=== PATIENT | female | born 1940 | race Caucasian/White ===

== ENCOUNTER 2020-01-26 12:27 | Outpatient (CLI) | payer MEDICARE ==
--- NOTE | 2020-01-26 13:42 | MRI ---
MRI of thelumbar spine: 01/26/2020 COMPARISON:None available HISTORY:Lumbar radiculopathy TECHNIQUE: Multiplanar multisequence MR imaging of thelumbar spine without contrast Findings:The sagittal STIR imaging demonstrates nonspecific fluid signal intensity within the L1-2 di sc and to a lesser degree, the L2-3 disc. No adjacent vertebral body edema is noted at L1-2. Mild endplate edematous degenerative change noted at L2-3. Fluid within the L1-2 disc space is likely dege nerative in nature given lack of paravertebral soft tissue abnormality and lack of edema within the vertebral bodies. There is an anterior wedge compression fracture of the L1 vertebral body with approximately 40% loss of vertebral body height anteriorly. This is consistent with an old fracture. Retrolisthesis is noted at L1-2 measuring 5 mm and at L2-3 measuring 5 mm. Anterolisthesis at L4-5 me asures 4 mm. On the basis of 5 lumbar type vertebral bodies, the conus medullaris terminates at the T12-L1 level. T12-L1: Disc space narrowing with disc desiccation and mild disc bulge. Bilateral facet hypertrophy. No significant central canal or neural foraminal stenosis. L1-2: There is disc space narrowing with degenerative endplate change and posterior osteophyte/disc b ulge. No central canal stenosis. Bilateral facet hypertrophy with mild/moderate bilateral neural foraminal stenosis, left greater than right. L2-3: Bilateral facet hypertrophy. Disc space narrowing and disc desiccation with disc osteophyte com plex causing mild central canal stenosis. Vacuum disc formation. Moderate right and mild left neural foraminal stenosis. Vacuum disc formation noted. L3-4: Prominent bilateral facet hypertrophy and hypertrophy of ligamentum flavum. Disc space narrowin g with disc desiccation and disc bulge. There is vacuum disc formation present. There is a superimposed foraminal disc protrusion on the left. There is prominent left lateral recess stenosis. Vacuum disc formation is present. Mild bilateral neural foraminal stenosis. L4-5: Bilateral facet of [place] hypertrophy of the ligamentum flavum noted. There is disc space and w ith disc desiccation and disc bulge. Mild central canal stenosis. Vacuum disc formation noted. Mild left neural foraminal stenosis. No significant right neural foraminal stenosis. L5-S1: Bilateral facet hypertrophy. Anterior osteophyte formation noted on the right. There is disc d esiccation. Mild right neural foraminal stenosis. No central canal stenosis or left-sided neural foraminal stenosis. T2 hyperintense lesions within the right kidney are noted, evidence of cysts. IMPRESSION:Multilevel degenerative change within the lumbar spine as detailed above.
== END 2020-01-26 12:28 | disposition home or self-care (01) ==
LOC: TBSIIMAG 12:27
PROVIDERS: ATTEND Neurological Surgery
DX: M47.26 Other spondylosis with radiculopathy, lumbar region (principal); M54.5 Low back pain
CPT/HCPCS: 72148

== ENCOUNTER 2020-11-15 14:00 | Outpatient (CLI) | payer MEDICARE | END 2020-11-15 14:01 | disposition home or self-care (01) | LOC: BICMAMMO 14:00 | PROVIDERS: ATTEND Internal Medicine | DX: Z12.31 Encounter for screening mammogram for malignant neoplasm of breast (principal) | CPT/HCPCS: 77063; 77067 ==

== ENCOUNTER 2021-01-30 14:25 | Outpatient (CLI) | payer MEDICARE ==
[2021-01-30 15:21] LABS: Mean Corpuscular HGB CONC 34.1 g/dL (32.0-36.0); Mean Corpuscular Hemoglobin 33.8 pg (27.0-33.0); Mean Platelet Volume 9.4 fl (7.4-10.4); Platelet Count 311 10x3/uL (150-450); RBC Distribution Width 12.3 % (11.5-14.5); Red Blood Cell (RBC) Count 3.85 10x6/uL (3.90-5.03); White Blood Cell (WBC) Count 8.5 10x3/uL (3.5-10.5)
[2021-01-30 15:53] LABS: Anion Gap 12 mmol/L (10-20); BUN (Urea Nitrogen) 25 mg/dL (9.8-20.1); Calc. Creatinine Clearance 0 mL/min (70-130); Calcium 10.2 mg/dL (7.8-10.44); Carbon Dioxide 26 mmol/L (23-31); Chloride 106 mmol/L (98-107); Glucose 151 mg/dL (83-110); Potassium 4.4 mmol/L (3.5-5.1); Sodium 140 mmol/L (136-145)
[2021-01-31 08:59] LABS: SARS-CoV-2 PCR by NAA Not Detected (NotDetected)
== END 2021-01-30 14:26 | disposition home or self-care (01) ==
LOC: LABBT 14:25
PROVIDERS: ATTEND Specialist
DX: Z01.812 Encounter for preprocedural laboratory examination (principal); Z20.822 Contact with and (suspected) exposure to COVID-19
CPT/HCPCS: 80048; 85027; U0003; U0005

== ENCOUNTER 2021-02-02 10:30 | Day surgery (SDC) | payer MEDICARE ==
[2021-01-31 16:33] VITALS: BMI 32.8
[2021-02-02] MEDS ORDERED: Fentanyl 100 MCG/2 ML VIAL ONE (11:47)
[2021-02-02] MEDS ORDERED: Midazolam HCl 2 mg/2 ml Vial ONE (11:47)
[2021-02-02] MEDS ORDERED: Propofol 500 MG/50 ML VIAL ONE (11:48)
[2021-02-02] MEDS ORDERED: ceFAZolin 2 GM/DEX 5% 100 ML BAG ONE (12:03)
[2021-02-02] MEDS ORDERED: Bupivacaine PF 0.5% 30 ML VIAL ONE (12:08)
[2021-02-02] MEDS ORDERED: Sodium Chloride 0.9% 20 ML ONE (12:08)
[2021-02-02] MEDS ORDERED: Lidocaine 1% w/Epinephrine 1:100K 20 ML VIAL ONE (12:08)
[2021-02-02] MEDS ORDERED: EPINEPHrine 1 MG/ML AMP ONE (12:49)
== END 2021-02-02 15:40 | disposition home or self-care (01) ==
LOC: SDC 10:30
PROVIDERS: ATTEND Specialist
PROC: 0JH70DZ Insertion of Multiple Array Stimulator Generator into Back Subcutaneous Tissue and Fascia, Open Approach (ICD-10-PCS; principal; 2021-02-02)
PROC: 00HU3MZ Insertion of Neurostimulator Lead into Spinal Canal, Percutaneous Approach (ICD-10-PCS; 2021-02-02)
DX: G89.4 Chronic pain syndrome (principal); M96.1 Postlaminectomy syndrome, not elsewhere classified; M54.16 Radiculopathy, lumbar region; Z79.899 Other long term (current) drug therapy; Z88.5 Allergy status to narcotic agent
CPT/HCPCS: 72020; 76000; C1713; C1778; C1787; C1820; J0171; J2250; J2704; J3010; L8689; S0020

== ENCOUNTER 2021-12-25 09:08 | Outpatient (CLI) | payer MEDICARE | END 2021-12-25 09:09 | disposition home or self-care (01) | LOC: BICMAMMO 09:08 | PROVIDERS: ATTEND Internal Medicine | DX: Z12.31 Encounter for screening mammogram for malignant neoplasm of breast (principal); Z85.07 Personal history of malignant neoplasm of pancreas | CPT/HCPCS: 77063; 77067 ==

== ENCOUNTER 2022-02-01 09:43 | Outpatient (CLI) | payer MEDICARE | END 2022-02-01 09:44 | disposition home or self-care (01) | LOC: BICCT 09:43 | PROVIDERS: ATTEND Internal Medicine | DX: R10.9 Unspecified abdominal pain (principal); N28.1 Cyst of kidney, acquired; N20.0 Calculus of kidney; K57.30 Diverticulosis of large intestine without perforation or abscess without bleeding; Z90.49 Acquired absence of other specified parts of digestive tract; Z90.710 Acquired absence of both cervix and uterus; Z98.890 Other specified postprocedural states | CPT/HCPCS: 74177; 82565 ==

== ENCOUNTER 2022-02-22 10:14 | Outpatient (CLI) | payer MEDICARE | END 2022-02-22 10:15 | disposition home or self-care (01) | LOC: BICMAMMO 10:14 | PROVIDERS: ATTEND Internal Medicine | DX: M16.12 Unilateral primary osteoarthritis, left hip (principal); M85.852 Other specified disorders of bone density and structure, left thigh; M85.832 Other specified disorders of bone density and structure, left forearm; Z78.0 Asymptomatic menopausal state | CPT/HCPCS: 77080 ==

== ENCOUNTER 2022-03-14 10:47 | Outpatient (CLI) | payer MEDICARE | END 2022-03-14 10:48 | disposition home or self-care (01) | LOC: BICULT 10:47 | PROVIDERS: ATTEND Internal Medicine | DX: R19.04 Left lower quadrant abdominal swelling, mass and lump (principal); N83.8 Other noninflammatory disorders of ovary, fallopian tube and broad ligament | CPT/HCPCS: 76857 ==

== ENCOUNTER 2022-04-12 13:47 | Outpatient (CLI) | payer MEDICARE ==
[2022-04-12 14:53] LABS: #Eosinphils 0.1 10x3/uL (0.0-0.5); #Monocytes 0.7 10x3/uL (0.0-1.1); #Neutrophils 6.5 10x3/uL (1.5-8.4); %Basophils 0.1 % (0.0-2.0); %Eosinophils 0.9 % (0.0-6.0); %Lymphocytes 18.3 % (18.0-47.0); %Monocytes 7.4 % (0.0-10.0); %Neutrophils 73.1 % (40.0-75.0); Hemoglobin 13.5 g/dL (12.0-15.5); Mean Corpuscular HGB CONC 34.1 g/dL (32.0-36.0); Mean Corpuscular Hemoglobin 33.3 pg (27.0-33.0); Mean Corpuscular Volume 97.5 fl (81.6-98.3); Mean Platelet Volume 9.2 fl (7.4-10.4); Platelet Count 405 10x3/uL (150-450); RBC Distribution Width 12.7 % (11.5-14.5); Red Blood Cell (RBC) Count 4.06 10x6/uL (3.90-5.03); White Blood Cell (WBC) Count 8.9 10x3/uL (3.5-10.5)
[2022-04-12 15:01] LABS: Prothrombin Time 10.8 sec (9.5-12.1)
[2022-04-12 15:03] LABS: Anion Gap 14 mmol/L (10-20); BUN (Urea Nitrogen) 28 mg/dL (9.8-20.1); Calc. Creatinine Clearance 0 mL/min (70-130); Calcium 10.2 mg/dL (7.8-10.44); Carbon Dioxide 26 mmol/L (23-31); Chloride 105 mmol/L (98-107); Estimated GFR 35; Glucose 187 mg/dL (83-110); Potassium 4.4 mmol/L (3.5-5.1); Sodium 141 mmol/L (136-145)
== END 2022-04-12 13:48 | disposition home or self-care (01) ==
LOC: LABBT 13:47
PROVIDERS: ATTEND Orthopaedic Surgery
DX: Z01.812 Encounter for preprocedural laboratory examination (principal); M16.12 Unilateral primary osteoarthritis, left hip
CPT/HCPCS: 80048; 85025; 85610; 87081; 93005; 93010

== ENCOUNTER 2022-04-16 05:38 | Inpatient (IN) | payer MEDICARE ==
[2022-04-13 09:24] VITALS: BMI 33.6
[2022-04-16] MEDS ORDERED: Fentanyl 250 MCG/5 ML VIAL ONE (06:11)
[2022-04-16] MEDS ORDERED: Propofol 1,000 MG/100 ML VIAL IV ONE (06:12)
[2022-04-16] MEDS ORDERED: Tranexamic Acid 1,000 MG/10 ML VIAL ONE (06:18)
[2022-04-16] MEDS ORDERED: Sodium Chloride 0.9% 100 ML ONE ×2 (06:18→06:58)
[2022-04-16] MEDS ORDERED: Vancomycin (BATCH) 1.5 GRAM/300 ML BAG ONE (06:18)
[2022-04-16] MEDS ORDERED: Bupivacaine PF 0.5% 30 ML VIAL ONE (06:28)
[2022-04-16] MEDS ORDERED: Fentanyl 100 MCG/2 ML VIAL SLOW IVP PRN (06:38)
[2022-04-16] MEDS ORDERED: diphenhydrAMINE 25 MG CAP PO PRN (06:38)
[2022-04-16] MEDS ORDERED: Promethazine HCl 25 MG/ML VIAL IM PRN (06:38)
[2022-04-16] MEDS ORDERED: Acetaminophen 325 MG TAB PO PRN (06:38)
[2022-04-16] MEDS ORDERED: traMADol HCl 50 MG TAB PO PRN ×2 (06:38)
[2022-04-16] MEDS ORDERED: Zolpidem Tartrate 5 MG TAB PO PRN (06:38)
[2022-04-16] MEDS ORDERED: HYDROcodone/Acetaminophen 10/325 mg Tablet PO PRN (06:38)
[2022-04-16] MEDS ORDERED: CEFAZOLIN 2 GM VIAL ONE (06:58)
[2022-04-16 07:01] LABS: SARS-CoV-2 NAA Rapid Test Not Detected (NotDetected)
[2022-04-16] MEDS ORDERED: Promethazine HCl 25 MG/ML VIAL ONE (07:06)
[2022-04-16] MEDS ORDERED: Famotidine/PF 20 mg/2ml Vial ONE (07:07)
[2022-04-16] MEDS ORDERED: Ondansetron ODT 4 MG TAB ONE (07:07)
[2022-04-16] MEDS ORDERED: Ondansetron PF 4 MG/2 ML Vial ONE (07:07)
[2022-04-16] MEDS ORDERED: Dexamethasone 20 MG/5 ML VIAL ONE (07:15)
[2022-04-16] MEDS ORDERED: PHENYLEPHRINE-NS 100 MCG/ML 10 ML SYRINGE ONE (07:15)
[2022-04-16] MEDS ORDERED: Ropivacaine 0.5% HCl/PF (150 MG/30 ML VIAL) ONE (08:00)
[2022-04-16] MEDS ORDERED: LIPASE PO SCH (08:00)
[2022-04-16] MEDS ORDERED: AMYLASE PO SCH (08:00)
[2022-04-16] MEDS ORDERED: PROTEASE PO SCH (08:00)
[2022-04-16] MEDS ORDERED: Multivitamin W/ Minerals 1 TAB PO SCH (09:00)
[2022-04-16] MEDS ORDERED: Fentanyl 100 MCG/2 ML VIAL ONE ×2 (09:40→10:13)
[2022-04-16] MEDS: Sodium Chloride 0.9% 1,000 ML IV SCH ×2 (14:13→19:46)
[2022-04-16] MEDS: Lisinopril/Hydrochlorothiazide 10 mg/12.5 mg Tablet PO SCH (14:20)
[2022-04-16] MEDS: Aspirin 81 mg Enteric Coated Tablet PO SCH ×2 (14:30→21:48)
[2022-04-16] MEDS: Cholecalciferol 1,000 UNITS (25 MCG) TAB PO SCH (14:31)
[2022-04-16] MEDS: Cyanocobalamin (Vitamin B-12) 1,000 MCG TAB PO SCH (14:31)
[2022-04-16] MEDS: CEFAZOLIN 2 GM in Sodium Chloride 0.9% 100 ML IVPB SCH (14:34)
[2022-04-16] MEDS: HYDROcodone/Acetaminophen 10/325 mg Tablet PO PRN (16:38)
[2022-04-16] MEDS: Melatonin 3 MG TAB PO SCH (21:48)
[2022-04-16] MEDS: Donepezil HCl 5 MG TAB PO SCH (21:48)
[2022-04-17] MEDS: CEFAZOLIN 2 GM in Sodium Chloride 0.9% 100 ML IVPB SCH (00:04)
[2022-04-17] MEDS: Sodium Chloride 0.9% 1,000 ML IV SCH ×2 (04:47→14:18)
[2022-04-17 07:45] LABS: Hemoglobin 11.6 g/dL (12.0-16.0); Mean Corpuscular HGB CONC 33.6 g/dL (32.0-36.0); Mean Corpuscular Hemoglobin 34.7 pg (27.0-31.0); Mean Platelet Volume 7.3 fL (7.4-10.4); Platelet Count 293 10x3/uL (130-400); Red Blood Cell (RBC) Count 3.33 mill/uL (4.20-5.40); White Blood Cell (WBC) Count 13.4 10x3/uL (4.8-10.8)
[2022-04-17] MEDS: Ferrous Gluconate 324 MG TAB PO SCH ×2 (09:32→17:15)
[2022-04-17] MEDS: Senokot S 8.6-50 MG TAB PO SCH ×2 (09:32→21:15)
[2022-04-17] MEDS: Multivitamin W/ Minerals 1 TAB PO SCH (09:32)
[2022-04-17] MEDS: Aspirin 81 mg Enteric Coated Tablet PO SCH ×2 (09:33→21:15)
[2022-04-17] MEDS: Cholecalciferol 1,000 UNITS (25 MCG) TAB PO SCH (09:33)
[2022-04-17] MEDS: HYDROcodone/Acetaminophen 10/325 mg Tablet PO PRN (09:34)
[2022-04-17] MEDS: Cyanocobalamin (Vitamin B-12) 1,000 MCG TAB PO SCH (09:34)
[2022-04-17] MEDS: Lisinopril/Hydrochlorothiazide 10 mg/12.5 mg Tablet PO SCH (09:34)
[2022-04-17] MEDS: Ondansetron PF 4 MG/2 ML Vial IVP PRN (14:06)
[2022-04-17] MEDS: Melatonin 3 MG TAB PO SCH (21:15)
[2022-04-17] MEDS: Donepezil HCl 5 MG TAB PO SCH (21:15)
[2022-04-18] MEDS: Sodium Chloride 0.9% 1,000 ML IV SCH ×2 (04:08→11:43)
[2022-04-18 05:57] LABS: Hemoglobin 11.6 g/dL (12.0-16.0); Mean Corpuscular HGB CONC 34.1 g/dL (32.0-36.0); Mean Platelet Volume 6.9 fL (7.4-10.4); Platelet Count 267 10x3/uL (130-400); RBC Distribution Width 11.8 % (11.5-14.5); Red Blood Cell (RBC) Count 3.32 mill/uL (4.20-5.40)
[2022-04-18] MEDS: HYDROcodone/Acetaminophen 10/325 mg Tablet PO PRN (06:11)
[2022-04-18] MEDS: Ondansetron PF 4 MG/2 ML Vial IVP PRN (09:36)
[2022-04-18] MEDS: Scopolamine 1.5 mg/72 hour Patch TOP SCH (10:23)
[2022-04-18] MEDS: Aspirin 81 mg Enteric Coated Tablet PO SCH ×2 (11:42→21:24)
[2022-04-18] MEDS: Ferrous Gluconate 324 MG TAB PO SCH ×2 (11:42→18:04)
[2022-04-18] MEDS: Lisinopril/Hydrochlorothiazide 10 mg/12.5 mg Tablet PO SCH (11:42)
[2022-04-18] MEDS: Cyanocobalamin (Vitamin B-12) 1,000 MCG TAB PO SCH (11:42)
[2022-04-18] MEDS: Cholecalciferol 1,000 UNITS (25 MCG) TAB PO SCH (11:42)
[2022-04-18] MEDS: Multivitamin W/ Minerals 1 TAB PO SCH (11:43)
[2022-04-18] MEDS: Senokot S 8.6-50 MG TAB PO SCH ×2 (11:43→21:24)
[2022-04-18] MEDS: Donepezil HCl 5 MG TAB PO SCH (21:24)
[2022-04-18] MEDS: Melatonin 3 MG TAB PO SCH (21:24)
[2022-04-19] MEDS: Sodium Chloride 0.9% 1,000 ML IV SCH ×4 (03:00→22:27)
[2022-04-19 06:21] LABS: Hemoglobin 10.9 g/dL (12.0-16.0); Mean Corpuscular HGB CONC 34.3 g/dL (32.0-36.0); Mean Corpuscular Hemoglobin 35.2 pg (27.0-31.0); Mean Platelet Volume 7.2 fL (7.4-10.4); Platelet Count 237 10x3/uL (130-400); RBC Distribution Width 11.9 % (11.5-14.5); Red Blood Cell (RBC) Count 3.09 mill/uL (4.20-5.40); White Blood Cell (WBC) Count 11.6 10x3/uL (4.8-10.8)
[2022-04-19] MEDS: Cholecalciferol 1,000 UNITS (25 MCG) TAB PO SCH (08:47)
[2022-04-19] MEDS: Senokot S 8.6-50 MG TAB PO SCH ×2 (08:47→21:17)
[2022-04-19] MEDS: Ferrous Gluconate 324 MG TAB PO SCH ×2 (08:47→16:19)
[2022-04-19] MEDS: Aspirin 81 mg Enteric Coated Tablet PO SCH ×2 (08:47→21:17)
[2022-04-19] MEDS: Cyanocobalamin (Vitamin B-12) 1,000 MCG TAB PO SCH (08:47)
[2022-04-19] MEDS: Multivitamin W/ Minerals 1 TAB PO SCH (08:48)
[2022-04-19] MEDS: Lisinopril/Hydrochlorothiazide 10 mg/12.5 mg Tablet PO SCH (08:48)
[2022-04-19] MEDS: Scopolamine 1.5 mg/72 hour Patch TOP SCH (09:20)
[2022-04-19] MEDS: Melatonin 3 MG TAB PO SCH (21:17)
[2022-04-19] MEDS: Donepezil HCl 5 MG TAB PO SCH (21:17)
[2022-04-20] MEDS ORDERED: Bisacodyl 10 MG SUPP PR PRN (08:52)
[2022-04-20 08:54] VITALS: TEMP 98
[2022-04-20] MEDS: Ferrous Gluconate 324 MG TAB PO SCH (09:21)
[2022-04-20] MEDS: Cholecalciferol 1,000 UNITS (25 MCG) TAB PO SCH (09:21)
[2022-04-20] MEDS: Aspirin 81 mg Enteric Coated Tablet PO SCH (09:21)
[2022-04-20] MEDS: Senokot S 8.6-50 MG TAB PO SCH (09:21)
[2022-04-20] MEDS: Cyanocobalamin (Vitamin B-12) 1,000 MCG TAB PO SCH (09:22)
[2022-04-20] MEDS: Multivitamin W/ Minerals 1 TAB PO SCH (09:22)
[2022-04-20] MEDS: Lisinopril/Hydrochlorothiazide 10 mg/12.5 mg Tablet PO SCH (09:25)
[2022-04-20 09:28] VITALS: BP 131/80
[2022-04-20] MEDS: Sodium Chloride 0.9% 1,000 ML IV SCH (11:54)
== END 2022-04-20 12:39 | DRG 470 ==
LOC: SDC 05:38 → SJJU 10:36 → OBSVTOIN 04-17 15:15
PROVIDERS: ADMIT Orthopaedic Surgery; ATTEND Orthopaedic Surgery
PROC: 0SRB039 Replacement of Left Hip Joint with Ceramic Synthetic Substitute, Cemented, Open Approach (ICD-10-PCS; principal; 2022-04-16)
DX: M16.12 Unilateral primary osteoarthritis, left hip (principal); Z20.822 Contact with and (suspected) exposure to COVID-19; I10 Essential (primary) hypertension; M79.0 Rheumatism, unspecified; Z96.641 Presence of right artificial hip joint; Z96.651 Presence of right artificial knee joint; Z85.07 Personal history of malignant neoplasm of pancreas; Z90.710 Acquired absence of both cervix and uterus; Z90.721 Acquired absence of ovaries, unilateral; Z98.890 Other specified postprocedural states; Z87.442 Personal history of urinary calculi; Z79.899 Other long term (current) drug therapy; Z82.61 Family history of arthritis; Z82.49 Family history of ischemic heart disease and other diseases of the circulatory system; Z82.69 Family history of other diseases of the musculoskeletal system and connective tissue
CPT/HCPCS: 36415; 85027; 96365; 96375; 96376; C1713; C1776; G0378; J1100; J2405; J2550; J2704; J2795; J3010; J3370; J3490; J7050; Q0162; S0020; S0028; U0002

== ENCOUNTER 2023-01-30 09:57 | Outpatient (CLI) | payer MEDICARE | END 2023-01-30 09:58 | disposition home or self-care (01) | LOC: BICMAMMO 09:57 | PROVIDERS: ATTEND Internal Medicine | DX: Z12.31 Encounter for screening mammogram for malignant neoplasm of breast (principal); Z85.07 Personal history of malignant neoplasm of pancreas | CPT/HCPCS: 77063; 77067 ==

== ENCOUNTER 2023-11-28 12:48 | Outpatient (CLI) | payer MEDICARE | END 2023-11-28 12:49 | disposition home or self-care (01) | LOC: MRI 12:48 | PROVIDERS: ATTEND Family Medicine | DX: M47.26 Other spondylosis with radiculopathy, lumbar region (principal); M25.552 Pain in left hip; M51.16 Intervertebral disc disorders with radiculopathy, lumbar region; M76.892 Other specified enthesopathies of left lower limb, excluding foot; I70.208 Unspecified atherosclerosis of native arteries of extremities, other extremity; M47.817 Spondylosis without myelopathy or radiculopathy, lumbosacral region; M47.815 Spondylosis without myelopathy or radiculopathy, thoracolumbar region; M51.35 Other intervertebral disc degeneration, thoracolumbar region; M43.16 Spondylolisthesis, lumbar region; M48.061 Spinal stenosis, lumbar region without neurogenic claudication; M51.379 Other intervertebral disc degeneration, lumbosacral region without mention of lumbar back pain or lower extremity pain; M48.07 Spinal stenosis, lumbosacral region; M25.78 Osteophyte, vertebrae; N28.9 Disorder of kidney and ureter, unspecified; Z96.642 Presence of left artificial hip joint | CPT/HCPCS: 72100; 72148 ==

== ENCOUNTER 2024-10-14 11:56 | Emergency (ER) | payer MEDICARE ==
[2024-10-14 13:49] LABS: ALT (SGPT) 12 U/L (Less than 34); AST (SGOT) 20 U/L (11-34); Albumin 3.8 g/dL (3.1-4.5); Alkaline Phosphatase 84 U/L (40-110); Anion Gap 17 mmol/L (10-20); BUN (Urea Nitrogen) 21 mg/dL (9.8-20.1); Bilirubin, Total 0.6 mg/dL (0.3-1.2); Calc. Creatinine Clearance 0 mL/min (70-130); Calcium 10.1 mg/dL (7.8-10.44); Carbon Dioxide 23 mmol/L (23-31); Chloride 104 mmol/L (98-107); Globulin 2.7 g/dL (2.4-3.5); Glucose 107 mg/dL (83-110); Potassium 4.2 mmol/L (3.5-5.1); Sodium 140 mmol/L (136-145)
[2024-10-14 14:07] LABS: #Basophils Less than 0.03 10x3/uL (0.0-0.2); #Eosinophils 0.08 10x3/uL (0.0-0.7); #Monocytes 0.76 10x3/uL (0.11-0.59); #Neutrophils 10.77 10x3/uL (1.40-6.50); %Basophils 0.2 % (0.0-1.0); %Eosinophils 0.6 % (0.0-10.0); %Lymphocytes 8.7 % (21.0-51.0); %Monocytes 5.9 % (0.0-10.0); %Neutrophils 84.1 % (42.0-75.0); Hematocrit 38.4 % (36.0-47.0); Hemoglobin 13.7 g/dL (12.0-16.0); Mean Corpuscular Hemoglobin 33.9 pg (27.0-31.0); Mean Corpuscular Volume 95.0 fL (78.0-98.0); Platelet Count 332 10x3/uL (130-400); Red Blood Cell (RBC) Count 4.04 mill/uL (4.20-5.40); White Blood Cell (WBC) Count 12.81 10x3/uL (4.8-10.8)
== END 2024-10-14 14:32 | disposition home or self-care (01) ==
LOC: ERS 11:56
DX: I95.9 Hypotension, unspecified (principal)
CPT/HCPCS: 80053; 84484; 85025; 93005; 94760; 99285

== ENCOUNTER 2025-01-27 10:51 | Outpatient (CLI) | payer MEDICARE | END 2025-01-27 10:52 | disposition home or self-care (01) | PROVIDERS: ATTEND Internal Medicine | DX: M62.838 Other muscle spasm (principal); M16.12 Unilateral primary osteoarthritis, left hip; R26.9 Unspecified abnormalities of gait and mobility ==

== ENCOUNTER 2025-02-03 10:15 | Outpatient (CLI) | payer MEDICARE | END 2025-02-03 10:16 | disposition home or self-care (01) | LOC: BICRAD 10:15 | PROVIDERS: ATTEND Internal Medicine | DX: M47.22 Other spondylosis with radiculopathy, cervical region (principal); M54.2 Cervicalgia | CPT/HCPCS: 72040 ==